=== PATIENT | male | born 1950 | race Caucasian/White ===

== ENCOUNTER 2018-11-04 19:21 | Emergency (ER) | payer SELFPAY ==
[2018-11-04 19:33] VITALS: BMI 29.1
[2018-11-04 20:13] LABS: BASO % 0.7 % (0.0-2.0); EOS # 0.1 K/uL (0.0-0.7); EOS % 0.9 % (0.0-4.0); HEMOGLOBIN 13.9 g/dL (12.0-18.0); LYMPH # 1.8 K/uL (1.0-4.3); LYMPH % 26.7 % (20.0-40.0); MEAN CELL VOLUME 85.7 fl (80.0-94.0); MEAN CORPUSCULAR HEMOGLOBIN 28.2 pg (27.0-31.0); MEAN CORPUSCULAR HGB CONC 32.9 g/dL (33.0-37.0); MEAN PLATELET VOLUME 9.4 fl (7.2-11.7); MONO # 0.5 K/uL (0.0-0.8); MONO % 7.8 % (0.0-10.0); NEUT # 4.4 K/uL (1.8-7.0); NEUT % 63.9 % (50.0-75.0); NRBC % 0.1 % (0.0-0.0); RBC 4.93 Mil/uL (4.40-5.90); WHITE BLOOD COUNT 6.9 K/uL (4.8-10.8)
--- NOTE | 2018-11-04 20:18 | ED PDOC ---
HPI: Altered Mental Status Time Seen by Provider: 11/04/18 19:25 Chief Complaint (Nursing): Altered Mental Status Chief Complaint (Provider): Altered Mental Status, Fall History Per: EMS, Family, Vice Chancellor (KIMMY is voyce [place] official court interpreter) History/Exam Limitations: Clinical Condition Onset Of Symptoms: <3 Hours Current Symptoms Are (Timing): Still Present Additional Complaint(s): Unidentified male presents to the ED via EMS for evaluation s/p a fall. Witnesses on the scene report patient was walking his dog when he suddenly fell to the ground and started twitching at some point- although it is not clear whether he was twitching before or after falling. no gross whole body shaking noted. He was put in a c-collar prior to arrival with an abrasion to the back of his head. Patient speaks nigerian. PMD: unobtainable NIHSS Stroke Scale - Date/Time Evaluation Performed Date Performed: 11/04/18 Time Performed: 20:00 (Family used as Urdu columnist) When Was NIHSS Performed: Baseline - How Severe is the Stroke Level of Consciousness: 0=Alert LOC to Questions: 0=Both comments correct LOC to commands: 0=Obeys both correctly Best Gaze: 0=Normal Visual: 0=No visual loss Facial: 0=Normal Motor Arm - Left: 0=No drift Motor Arm - Right: 0=No drift Motor Leg - Left: 0=No drift Motor Leg - Right: 0=No drift Limb Ataxia: 0=Absent Sensory: 0=Normal Best Language: 0=No aphasia Dysarthia: 0=Normal articulation Extinction & Inattention (Neglect): 0=Normal, no object Score: 0 Past Medical History Reviewed: Unable To Obtain (pt denies, however when family comes states that pt has no medical problems but doesn't go to doctors) Vital Signs: Last Vital Signs Temp 97.8 F 11/04/18 19:33 Pulse 86 11/04/18 19:33 Resp 16 11/04/18 19:33 BP 143/104 H 11/04/18 19:33 Pulse Ox 92 L 11/04/18 19:33 - Family History Family History: States: Unknown Family Hx - Living Arrangements Living Arrangements: With Family - Allergies Allergies/Adverse Reactions: Allergies Allergy/AdvReac Type Severity Reaction Status Date / Time Unobtainable Allergy Verified 11/04/18 19:33 Review of Systems Review Of Systems: ROS cannot be obtained secondary to pt's inabilty to answer questions. Physical Exam - Reviewed Nursing Documentation Reviewed: Yes Vital Signs Reviewed: Yes - Physical Exam Appears: Positive for: No Acute Distress Head Exam: Positive for: NORMOCEPHALIC. Negative for: ATRAUMATIC (abrasion to b ack of head. no active bleeding.) Skin: Positive for: Normal Color, Warm, Dry Eye Exam: Positive for: Normal appearance ENT: Positive for: Normal ENT Inspection Neck: Positive for: Normal (in c-collar) Cardiovascular/Chest: Positive for: Regular Rate, Rhythm Respiratory: Positive for: Normal Breath Sounds. Negative for: Respiratory Distress Gastrointestinal/Abdominal: Positive for: Normal Exam, Soft. Negative for: Tenderness (no apparent discomfort) Back: Positive for: Normal Inspection Extremity: Positive for: Normal ROM (all extremities) Neurological/Psych: Positive for: Awake, Alert, Oriented, gi technician II-XII, Other (patient not answering questions initially, when family came who translated nigerian, pt was oriented X3). Negative for: Lethargic, Motor/Sensory Deficits, Facial Droop - Laboratory Results Result Diagrams: 11/04/18 20:08 11/04/18 20:08 - ECG ECG: Positive for: Interpreted By Me, Viewed By Me ECG Rhythm: Positive for: Normal ST Segment, Sinus Rhythm (normal at 80bpm). Negative for: ST/T Changes O2 Sat by Pulse Oximetry: 92 (RA) Pulse Ox Interpretation: Abnormal - Critical Care Total Time (In Min): 60 Documented Critical Care: Time excludes all time spent performint seperately billable procedures Medical Decision Making Medical Decision Making: Initial Impression: Christian Gaytan patient with head injury and altered mental status, fell while walking dog. Initially pt would not talk. but pt speaks nigerian, when family arrived soon after patients arrival, pt was talking and oriented X3. will need to rule out bleeding and stroke. difficult to know if pt fell and then had event, or had event and then fell. pt currently hemodynamically stable. Time: 1937 Initial Plan: --EKG --CT head without contrast --CT C-spine without contrast --Acetaminophen chemistry --Alcohol serum --CMP --UDS --Salicylate --CBC with differential --Urinalysis CT Head FINDINGS: BRAIN: There is subdural hemorrhage along the right frontoparietal subdural space, measuring up to 6 mm in thickness is near series 2, image 18. There are multiple small areas of presumed subarachnoid hemorrhage within sulci within the right hemisphere including right parietal and right frontal and possibly right temporal regions. There are additional subdural and subarachnoid blood within the right and left frontal regions and a small amount of additional subdural bl ood at the anterior falx cerebri. Tiny additional and parenchymal or subarachnoid hemorrhage at the right parietal crown near series 2, image 25. There is no midline shift mass effect. There does appear to be some slight effacement of right-sided sulci compatible with mild brain edema. VENTRICLES: No hydrocephalus. ORBITS: The orbits are unremarkable. SINUSES AND MASTOIDS: The paranasal sinuses and mastoid air cells are clear. BONES: No evidence for displaced calvarial fracture. SOFT TISSUES: Unremarkable. MISCELLANEOUS: No evidence for acute territorial infarction. IMPRESSION: 1. There is subdural hemorrhage along the right frontoparietal subdural space, measuring up to 6 mm in thickness is near series 2, image 18. There are multiple small areas of presumed subarachnoid hemorrhage within sulci within the right hemisphere including right parietal and right frontal and possibly right temporal regions. There are additional subdural and subarachnoid blood within the right and left frontal regions and a small amount of additional subdural blood at the anterior falx cerebri. Tiny additional and parenchymal or subarachnoid hemorrhage at the right parietal crown near series 2, image 25. There is no midline shift mass effect. 2. There does appear to be some slight effacement of right-sided sulci compatible with mild brain edema. 3. No evidence for displaced calvarial fracture. 4. No evidence for acute territorial infarction. 5. These findings are being promptly telephoned to the referring clinicians at the time of this interpretation. Electronically signed on Nov 04, 2018 9:35:17 PM EDT by: Sharad Stanley M.D., BEN Certified By ABR & CBCCT 2140 discussed results with pts son and son in law at bedside. pt alert, awake, patent airway, stable vitals 2140 He just vomited and states he feels dizzy. 2142 Additional orders: --Normal saline IV --Nasal cannula placement --Zofran 4mg IVP --PT/INR --Type and screen CT C-spine FINDINGS: ALIGNMENT: There is a mild levoscoliosis centered at C4-C5 which may be positional in nature, please correlate clinically. There is straightening of the cervical lordosis. DEGENERATIVE CHANGES: Mild to moderate multilevel degenerative changes in the cervical spine. SOFT TISSUES: No focal prevertebral soft tissue swelling. BONES: No evidence for acute fracture or subluxation and cervical spine. MISCELLANEOUS: Mild biapical scarring. IMPRESSION: 1. Mild to moderate multilevel degenerative changes in the cervical spine. 2. Mild biapical scarring. 3. There is a mild levoscoliosis centered at C4-C5 which may be positional in nature, please correlate clinically. 4. There is straightening of the cervical lordosis. 5. No focal prevertebral soft tissue swelling. 6. No evidence for acute fracture or subluxation and cervical spine. Electronically signed on Nov 04, 2018 9:48:51 PM EDT by: Sharad Stanley M.D., BEN Certified By ABR & CBCCT 214 Placed consult to neurosurgery application systems architect dr lofton. [address] Lofton. recommends transfer. he believes based on reviewing images that pt has chronic subdural and this acute event is traumatic, and is subarachnoid 2204 Case discussed with [place] [facility]. Spoke with Dr. diaz as well as his PA Andrews Koroma who accepted the patient to his service. 2209 Pt's daughter who is an ER nurse arrived and agrees with plan for transfer. using nigerian columnist, (see code above) explained to patient results thus far and need for transfer. answered familys questions at [facility]. Will arrange transportation for patient to be transferred to [place]. 221 Spoke to [place] [facility] AUTOMATION DEVELOPER Drea Said, as patient is to be directly transfered to their ER, which does not violate any ER to ER guidelines as [place] has a specialized neuro ICU and ability to do endovascular neuro procedures which this hospital does not. 2227 Discussed final plan with patient and family again . Family and patient agreeable to plan with all questions answered. 2230 Upon reevaluation , patient neurovascular intact, hemodynamically stable, and aaox3. ESTEFANIA VAIL coming for patient transfer - ETA 30 minutes. 2257 Estefania arrived Scribe Attestation: Documented by Deidre Meraz, acting as a scribe for Juliette Gonzalez MD Provider Scribe Attestation: All medical record entries made by the Scribe were at my direction and personally dictated by me. I have reviewed the chart and agree that the record accurately reflects my personal performance of the history, physical exam, medical decision making, and the department course for this patient. I have also personally directed, reviewed, and agree with the discharge instructions and disposition. Disposition - Clinical Impression Clinical Impression: Altered mental status, Subarachnoid hemorrhage - Patient ED Disposition Is Patient to be Admitted: Yes Counseled Patient/Family Regarding: Studies Performed, Diagnosis - Disposition Disposition: Other Institution Disposition Time: 22:25 Condition: SERIOUS Forms: 5 Minutes (Cymraes)
[2018-11-04 20:25] LABS: ALB/GLOB RATIO 1.3 (1.0-2.1); ALBUMIN 4.6 g/dL (3.5-5.0); ALT/SGPT 36 U/L (21-72); AST/SGOT 34 U/L (17-59); BLOOD UREA NITROGEN 21 mg/dl (9-20); CALCIUM 9.1 mg/dL (8.4-10.2); GFR NON-AFRICAN AMERICAN > 60
[2018-11-04 20:26] LABS: ACETAMINOPHEN < 10.0 ug/ml (10.0-30.0); SALICYLATE < 1.0 mg/dl
[2018-11-04] MEDS ORDERED: Tdap Vaccine 0.5 ml Vial (10-64 yrs) IM ONE (21:38)
[2018-11-04] MEDS ORDERED: Sodium Chloride 0.9% 1,000 ML IV STA (21:43)
[2018-11-04 22:18] LABS: INR 1.1; PROTHROMBIN TIME 12.2 Seconds (9.8-13.1)
[2018-11-04 23:45] VITALS: BP 115/76; PULSE 82; RESP 20; TEMP 98.3; O2SAT 100
--- NOTE | 2018-11-05 07:14 | CARD ---
APPROVED REPORT Date of service: 11/04/2018 EKG Measurement Heart [id number] <Conclusion> Normal sinus rhythm Nonspecific ST abnormality Abnormal ECG
--- NOTE | 2018-11-05 07:16 | CARD ---
APPROVED REPORT Date of service: 11/04/2018 EKG Measurement Heart [id number] <Conclusion> Normal sinus rhythm Incomplete right bundle branch block Nonspecific ST-T changes Abnormal ECG
--- NOTE | 2018-11-05 12:46 | CT ---
Date of service: 11/04/2018 PROCEDURE: CT Cervical Spine without contrast HISTORY: fall, unknown details COMPARISON: None available. TECHNIQUE: Axial computed tomography images were obtained of the cervical spine without the use of intravenous contrast. Coronal and sagittal reformatted images were created and reviewed. Radiation dose: Total exam DLP = 396.87 mGy-cm. This CT exam was performed using one or more of the following dose reduction techniques: Automated exposure control, adjustment of the mA and/or kV according to patient size, and/or use of iterative reconstruction technique. FINDINGS: VERTEBRAE: Straightened cervical curvature without fracture or spondylolisthesis appreciable. C1-2 articulation is degenerated but intact nevertheless. No odontoid process is unremarkable as well as base of C2 and the C1 ring. Craniocervical junction is intact as well. DISCS/SPINAL CANAL/NEURAL FORAMINA: At C3-4, a mild right and borderline left degenerative neural foraminal stenosis is caused by uncovertebral and facet joint degenerative arthropathy. Partially calcified disc bulge causes mild central canal stenosis as well. At C4-5, moderate bilateral degenerative neural foraminal stenoses identified caused by degenerative osteophytes with disc osteophyte complex causing mild central canal stenosis as well. At C5-6, moderate right and mild left degenerative neural foraminal stenoses are encountered with mild degenerative central canal stenosis also noted due to disc osteophyte complex. At C6-7, there is a moderate central stenosis caused by large disc osteophyte complex with severe bilateral neural foraminal stenoses identified related to disc osteophyte as well as uncovertebral and facet joint osteophytes. At C7-T1, there is a borderline central stenosis due to disc bulging but no significant neural foraminal stenosis. PARASPINAL SOFT TISSUES: Prevertebral and paraspinal soft tissues appear diffusely unremarkable. OTHER FINDINGS: None. IMPRESSION: 1. No acute fracture or spondylolisthesis evident. 2. Straightened cervical curvature. 3. Multilevel disc osteophyte complexes, uncovertebral and facet joint arthropathy combine to result in variable neural foraminal and central canal stenoses as discussed above, seen worst 7 where moderate central canal and severe bilateral neural foraminal stenoses are defined. MRI is available follow-up has indicated. Preliminary report provided by Dianelys, 11/04/2018, 9:48 p.m..
--- NOTE | 2018-11-05 13:17 | CT ---
Date of service: 11/04/2018 PROCEDURE: CT HEAD WITHOUT CONTRAST. HISTORY: ams COMPARISON: None available. TECHNIQUE: Axial computed tomography images were obtained through the head/brain without intravenous contrast. Radiation dose: Total exam DLP = 834.59 mGy-cm. This CT exam was performed using one or more of the following dose reduction techniques: Automated exposure control, adjustment of the mA and/or kV according to patient size, and/or use of iterative reconstruction technique. FINDINGS: HEMORRHAGE: There is right lateral convexity subdural acute hemorrhage. This measures up to 5 mm in width. There is a small amount of subdural blood seen along the right side of the anterior falx cerebrum E. there is subdural blood seen along the left side of the falx cerebrum in its mid aspect. There is extensive subarachnoid hemorrhage seen over the right lateral convexity and in the inferior frontal lobes bilaterally. There is questionable parenchymal hemorrhage in the inferior frontal lobes bilaterally. There is focal parenchymal hemorrhage in the high right frontal lobe at the vertex. There is no intraventricular hemorrhage. There is questionable small chronic subdural hemorrhage over the left lateral convexity measuring up to 3 mm in width. This is low-attenuation without evidence of superimposed acute hemorrhage. BRAIN: There is no intracranial mass. There is no evidence of acute infarct. There is no chronic white matter ischemic change. No atrophy or chronic microvascular ischemic changes. VENTRICLES: Unremarkable. No hydrocephalus. CALVARIUM: Unremarkable. PARANASAL SINUSES: Unremarkable as visualized. No significant inflammatory changes. MASTOID AIR CELLS: Unremarkable as visualized. No inflammatory changes. OTHER FINDINGS: None. IMPRESSION: Right lateral convexity acute subdural hemorrhage. Questionable small left lateral convexity chronic subdural hemorrhage. Extensive subarachnoid hemorrhage over the right lateral convexity as well as in the inferior frontal region bilaterally. Subdural blood seen along the falx cerebrum. Small focal parenchymal hemorrhage in the right frontal vertex and questionable parenchymal hemorrhage in the inferior frontal lobes bilaterally. No intraventricular hemorrhage. No midline shift or evidence of downward herniation. The preliminary findings for this examination were reported by [facility] at 9:35 p.m. on 11/04/2018. There is concurrence of this report with the preliminary findings.
== END 2018-11-04 23:00 | disposition short-term general hospital (02) ==
LOC: EDBD 19:21 → H.ER 19:21
DX: R41.82 Altered mental status, unspecified (principal); S06.6X0A Traumatic subarachnoid hemorrhage without loss of consciousness, initial encounter; R42 Dizziness and giddiness; W19.XXXA Unspecified fall, initial encounter; Y93.K1 Activity, walking an animal
CPT/HCPCS: 70450; 72125; 80053; 82948; 85025; 85610; 85730; 86850; 86900; 93005; 99285; G0480; J2405; J7030